=== PATIENT | male | born 1995 | race Caucasian/White ===

== ENCOUNTER 2021-02-22 17:07 | Inpatient (IN) | payer OTHER ==
[~2021-02-22] VITALS: Ht 190.5 cm; Wt 101.0 kg
[2021-02-22] MEDS ORDERED: acetaminophen 325mg tablet PO STA (17:22)
[2021-02-22] MEDS ORDERED: normal saline 1000ML IV soln IV ONE (17:25)
[2021-02-22] MEDS ORDERED: dexamethasone sod phosphate 10mg/ml inj IV STA (17:28)
[2021-02-22] MEDS ORDERED: ALBUTEROL INHALER 1 PUFF/90 MCG INHALER IH PRN (17:34)
[2021-02-22 18:09] LABS: BASOPHILS % (AUTO) 0.1 % (0-1); EOSINOPHILS % (AUTO) 0 % (0-6); HEMATOCRIT 39.2 % (42.0-52.0); HEMOGLOBIN 13.5 g/dl (14.0-17.9); LYMPHOCYTES # (AUTO) 0.4 X10'3 (1.1-4.8); MEAN CORPUSCULAR HEMOGLOBIN 28.7 PG (27.0-31.0); MEAN CORPUSCULAR HGB CONC 34.5 g/dL (33.0-36.5); MEAN CORPUSCULAR VOLUME 83.1 FL (78-98); MEAN PLATELET VOLUME 8.6 FL (7.4-10.4); MONOCYTES # (AUTO) 0.4 X10'3 (0-0.9); MONOCYTES % (AUTO) 6.4 % (2-12); NEUTROPHILS # (AUTO) 5.6 X10'3 (1.8-7.7); NEUTROPHILS % (AUTO) 87.5 % (42-75); PLATELET COUNT 239 X10'3 (140-440); RED BLOOD COUNT 4.72 X10'6 (4.70-6.10); RED CELL DISTRIBUTION WIDTH 13.8 % (11.5-14.5); WHITE BLOOD COUNT 6.4 X10'3 (4.5-11.0)
[2021-02-22] MEDS ORDERED: iohexol 350MG/ML 100ml bottle IV ONE (18:12)
[2021-02-22 18:21] LABS: D-DIMER 1.47 MG/L FEU (0-0.50)
[2021-02-22 18:24] LABS: ALANINE AMINOTRANSFERASE 171 U/L (12-78); ALBUMIN 2.9 G/DL (3.4-5.0); ALBUMIN/GLOBULIN RATIO 0.6 (1.1-1.5); ALKALINE PHOSPHATASE 41 IU/L (46-116); ANION GAP 12 (8-16); ASPARTATE AMINO TRANSFERASE 165 U/L (10-37); BILIRUBIN,TOTAL 0.5 MG/DL (0.1-1.0); BLOOD UREA NITROGEN 16 MG/DL (7-18); BUN/CREATININE RATIO 12.8 (5.4-32.0); C-REACTIVE PROTEIN 12.44 MG/DL (0.0-0.5); CALCIUM 7.8 MG/DL (8.5-10.1); CHLORIDE 98 MMOL/L (99-107); CREATININE 1.25 MG/DL (0.60-1.10); GLUCOSE 132 MG/DL (70-104); POTASSIUM 3.5 MMOL/L (3.5-5.1); SODIUM 135 MMOL/L (135-145); TOTAL CARBON DIOXIDE 24.7 MMOL/L (24-32); TOTAL PROTEIN 7.5 G/DL (6.4-8.2); eGFR 70 ML/MIN
[2021-02-22] MEDS ORDERED: REMDESIVIR INJ 200 MG in normal saline 100ml IV soln 60 ML IV ONE (18:50)
[2021-02-22 18:59] LABS: ABG BASE EXCESS 1.8 mmol/L (-2.0-2.0); ABG HCO3 24.7 mmol/L (22.0-26.0); ABG OXYGEN SATURATION 93.4 % (94-97); ABG PCO2 (T) 34.3 mmHg (35.0-48.0); ABG PO2 (T) 63.5 mmHg (75.0-100.0); ALLEN'S TEST POSITIVE; FCOHb 0.1 % (0.0-3.9); FLOW 15 L/min; FMetHb 0.4 % (0.0-1.5); FO2Hb 92.9 % (94-97); PATIENT TEMPERATURE 37.3
[2021-02-22] MEDS ORDERED: ALBU8HFA IH (19:12)
[2021-02-22] MEDS ORDERED: PRED20TA PO (19:12)
--- NOTE | 2021-02-22 19:13 | NUR ---
[facility] [place] [phone]
[2021-02-22] MEDS ORDERED: REMDESIVIR 100 MG in NS 100ml IVPB IV SCH (20:00)
[2021-02-22] MEDS ORDERED: acetaminophen 325mg tablet PO PRN (22:25)
[2021-02-22] MEDS ORDERED: ondansetron/PF 4mg/2ml inj IV PRN (22:25)
[2021-02-22] MEDS ORDERED: magnesium hydroxide 30ml (MOM) UD suspension PO PRN (22:25)
[2021-02-22] MEDS ORDERED: ALBUTEROL IH PRN (22:35)
[2021-02-23 01:44] LABS: BASOPHILS % (AUTO) 0.1 % (0-1); EOSINOPHILS % (AUTO) 0 % (0-6); HEMOGLOBIN 13.7 g/dl (14.0-17.9); LYMPHOCYTES # (AUTO) 0.7 X10'3 (1.1-4.8); LYMPHOCYTES % (AUTO) 10.7 % (21-51); MEAN CORPUSCULAR HEMOGLOBIN 28.7 PG (27.0-31.0); MEAN CORPUSCULAR HGB CONC 34.2 g/dL (33.0-36.5); MEAN CORPUSCULAR VOLUME 83.9 FL (78-98); MEAN PLATELET VOLUME 8.2 FL (7.4-10.4); MONOCYTES # (AUTO) 0.3 X10'3 (0-0.9); MONOCYTES % (AUTO) 4.6 % (2-12); NEUTROPHILS # (AUTO) 5.3 X10'3 (1.8-7.7); NEUTROPHILS % (AUTO) 84.6 % (42-75); PLATELET COUNT 249 X10'3 (140-440); RED BLOOD COUNT 4.76 X10'6 (4.70-6.10); RED CELL DISTRIBUTION WIDTH 13.6 % (11.5-14.5); WHITE BLOOD COUNT 6.2 X10'3 (4.5-11.0)
[2021-02-23] MEDS: mag hydrox/Alum hydrox/simeth 30ml oral suspension PO PRN (01:54)
[2021-02-23 02:01] LABS: ALANINE AMINOTRANSFERASE 164 U/L (12-78); ALBUMIN 2.7 G/DL (3.4-5.0); ALBUMIN/GLOBULIN RATIO 0.6 (1.1-1.5); ALKALINE PHOSPHATASE 44 IU/L (46-116); ANION GAP 10 (8-16); ASPARTATE AMINO TRANSFERASE 137 U/L (10-37); BILIRUBIN,TOTAL 0.5 MG/DL (0.1-1.0); BLOOD UREA NITROGEN 13 MG/DL (7-18); BUN/CREATININE RATIO 12.4 (5.4-32.0); CALCIUM 7.9 MG/DL (8.5-10.1); CHLORIDE 106 MMOL/L (99-107); CREATININE 1.05 MG/DL (0.60-1.10); GLUCOSE 161 MG/DL (70-104); SODIUM 141 MMOL/L (135-145); TOTAL CARBON DIOXIDE 24.8 MMOL/L (24-32); TOTAL PROTEIN 7.2 G/DL (6.4-8.2); eGFR 86 ML/MIN
[2021-02-23 02:30] LABS: CLARITY,URINE CLEAR (Clear); COLOR,URINE YELLOW (Yellow); GLUCOSE, URINE NEGATIVE (Neg); KETONES,URINE TRACE mg/dl (Neg); LEUKOCYTE ESTERASE ,URINE NEGATIVE (Neg); NITRITES, URINE NEGATIVE (Neg); OCCULT BLOOD,URINE NEGATIVE (Neg); PH,URINE 6.5 (4.8-8.0); PROTEIN,URINE NEGATIVE (Neg); UA COLLECTION TYPE URINAL; UROBILINOGEN,URINE 0.2 E.U/dL (0.2-1.0)
[2021-02-23 02:35] LABS: URINE AMPHETAMINE SCREEN NEGATIVE (Neg); URINE BARBITUATE SCREEN NEGATIVE (Neg); URINE BENZODIAZEPINES SCREEN NEGATIVE (Neg); URINE CANNABINOID SCREEN NEGATIVE (Neg); URINE COCAINE SCREEN NEGATIVE (Neg); URINE METHADONE SCREEN NEGATIVE (Neg); URINE OPIATE SCREEN NEGATIVE (Neg); URINE PHENCYCLIDINE SCREEN NEGATIVE (Neg)
--- NOTE | 2021-02-23 06:36 | NUR ---
paged rt for o2 adjustment pt spo2 86-91 on 30 l and pt is tachycardiac.
--- NOTE | 2021-02-23 07:00 | NUR ---
rt at bedside.
[2021-02-23] MEDS ORDERED: heparin, porcine 5000 units/ml vial SQ SCH (08:00)
[2021-02-23] MEDS: docusate sod 100mg capsule PO SCH ×2 (08:00→20:06)
[2021-02-23] MEDS: dexamethasone inj 6 MG in dextrose 5%-water 100 ML IV SCH ×2 (08:00→20:07)
[2021-02-23 10:00] VITALS: BP 107/66
[2021-02-23 14:00] VITALS: BP 112/66
[2021-02-23 18:00] VITALS: BP 116/69
--- NOTE | 2021-02-23 18:36 | NUR ---
Patient in room ORTHO 4024. I have received report from Alden LIRA and had the opportunity to ask questions and assume patient care.
[2021-02-23] MEDS ORDERED: enoxaparin 40mg/0.4ml syringe SUBCUT SCH (20:00)
[2021-02-23] MEDS: enoxaparin 40mg/0.4ml syringe SUBCUT SCH (20:06)
[2021-02-23] MEDS: REMDESIVIR 100 MG in NS 100ml IVPB IV SCH (20:07)
[2021-02-23 22:00] VITALS: BP 104/60
--- NOTE | 2021-02-23 23:45 | NUR ---
found patient sleeping on his back sats 81% and snoring. turned on his side - pt on 15NRB and 15HF NC. still sat 83%. pt looks sweaty and uncomfortable. didn't tolerate his side sleeping. notified Dr. Mina Win MD went in to see patient. ordered tower or bipap if patient needs.
[2021-02-24] MEDS ORDERED: LORazepam 0.5 MG tablet PO PRN (00:25)
--- NOTE | 2021-02-24 00:26 | NUR ---
pt having difficulty tolerating tower with high flow nasal at 50Liters and 100% FiO2. extensive education given for oxygen levels, types of oxygen, time for becoming comfortable with mask, risk for inubation etc. Dr. Enriquez ordered ativan prn. to call him back if dose ineffective. placed the warmer on patient for more comfort.
[2021-02-24] MEDS: mag hydrox/Alum hydrox/simeth 30ml oral suspension PO PRN (00:53)
[2021-02-24 02:00] VITALS: BP 105/62
[2021-02-24 06:00] VITALS: BP 99/57
--- NOTE | 2021-02-24 06:38 | NUR ---
Problems reprioritized. Patient report given, questions answered & plan of care reviewed with Alden LIRA.
[2021-02-24 07:17] LABS: BASOPHILS % (AUTO) 0.1 % (0-1); EOSINOPHILS % (AUTO) 0 % (0-6); HEMATOCRIT 36.8 % (42.0-52.0); HEMOGLOBIN 12.7 g/dl (14.0-17.9); LYMPHOCYTES # (AUTO) 0.7 X10'3 (1.1-4.8); MEAN CORPUSCULAR HEMOGLOBIN 28.8 PG (27.0-31.0); MEAN CORPUSCULAR HGB CONC 34.5 g/dL (33.0-36.5); MEAN CORPUSCULAR VOLUME 83.5 FL (78-98); MEAN PLATELET VOLUME 8.7 FL (7.4-10.4); MONOCYTES # (AUTO) 0.7 X10'3 (0-0.9); NEUTROPHILS # (AUTO) 5.9 X10'3 (1.8-7.7); NEUTROPHILS % (AUTO) 80.9 % (42-75); PLATELET COUNT 328 X10'3 (140-440); RED CELL DISTRIBUTION WIDTH 13.9 % (11.5-14.5); WHITE BLOOD COUNT 7.4 X10'3 (4.5-11.0)
[2021-02-24 07:33] LABS: D-DIMER 1.09 MG/L FEU (0-0.50)
[2021-02-24 07:40] LABS: ALANINE AMINOTRANSFERASE 145 U/L (12-78); ALBUMIN 2.3 G/DL (3.4-5.0); ALBUMIN/GLOBULIN RATIO 0.6 (1.1-1.5); ALKALINE PHOSPHATASE 39 IU/L (46-116); ANION GAP 9 (8-16); ASPARTATE AMINO TRANSFERASE 91 U/L (10-37); BILIRUBIN,TOTAL 0.4 MG/DL (0.1-1.0); BLOOD UREA NITROGEN 18 MG/DL (7-18); BUN/CREATININE RATIO 19.8 (5.4-32.0); C-REACTIVE PROTEIN 6.53 MG/DL (0.0-0.5); CALCIUM 7.7 MG/DL (8.5-10.1); CHLORIDE 110 MMOL/L (99-107); CREATININE 0.91 MG/DL (0.60-1.10); GLUCOSE 152 MG/DL (70-104); POTASSIUM 3.9 MMOL/L (3.5-5.1); SODIUM 144 MMOL/L (135-145); TOTAL CARBON DIOXIDE 25.3 MMOL/L (24-32); TOTAL PROTEIN 6.4 G/DL (6.4-8.2); eGFR > 90 ML/MIN
[2021-02-24] MEDS: pantoprazole 40mg Tablet.DR PO SCH (08:10)
[2021-02-24] MEDS: enoxaparin 40mg/0.4ml syringe SUBCUT SCH ×2 (08:10→20:39)
[2021-02-24] MEDS: docusate sod 100mg capsule PO SCH ×2 (08:10→20:38)
[2021-02-24] MEDS: dexamethasone inj 6 MG in dextrose 5%-water 100 ML IV SCH ×2 (08:11→20:38)
[2021-02-24 10:00] VITALS: BP 114/60
[2021-02-24] MEDS ORDERED: TOCILIZUMAB 80MG/4 ML INJ. 800 MG in normal saline 100ml IV soln 60 ML IV ONE (11:10)
[2021-02-24 14:00] VITALS: BP 114/82
[2021-02-24 17:43] LABS: ABG BASE EXCESS 0.9 mmol/L (-2.0-2.0); ABG HCO3 23.2 mmol/L (22.0-26.0); ABG OXYGEN SATURATION 92.5 % (94-97); ABG PCO2 (T) 30.8 mmHg (35.0-48.0); ABG PO2 (T) 61.9 mmHg (75.0-100.0); ALLEN'S TEST POSITIVE; FCOHb 0.3 % (0.0-3.9); FLOW 60 L/min; FMetHb 0.3 % (0.0-1.5); FO2Hb 91.9 % (94-97); TOTAL HEMOGLOBIN 14.2 G/dl (14.0-18.0)
[2021-02-24 18:00] VITALS: BP 115/73
--- NOTE | 2021-02-24 18:23 | NUR ---
PAGER ID: [phone] MESSAGE: [phone] Dudley Louis: RAUL douglas. [phone]
[2021-02-24] MEDS: REMDESIVIR 100 MG in NS 100ml IVPB IV SCH (20:39)
[2021-02-24 22:00] VITALS: BP 119/78
--- NOTE | 2021-02-25 01:00 | NUR ---
notified Dr. Enriquez that patient sats 85-90%. pt asymptomatic at this time. denies needs. tolerating flow w/o difficulty. aware and no change in order.s
[2021-02-25 02:00] VITALS: BP 109/69
--- NOTE | 2021-02-25 04:41 | NUR ---
PT DESATURATED TO 85% WHIEL LYING IN BED. POSITIONED ON LEFT SIDE AND ENCOURAGED PT TO TAKE DEEP BREATHE S PT COMPLIANT AND O2 SAT INCREASED TO 92-93
[2021-02-25 06:00] VITALS: BP 101/60
[2021-02-25] MEDS: dexamethasone inj 6 MG in dextrose 5%-water 100 ML IV SCH ×2 (07:58→19:28)
[2021-02-25] MEDS: enoxaparin 40mg/0.4ml syringe SUBCUT SCH ×2 (07:58→19:29)
[2021-02-25] MEDS: docusate sod 100mg capsule PO SCH ×2 (07:58→19:40)
[2021-02-25] MEDS: pantoprazole 40mg Tablet.DR PO SCH (07:58)
[2021-02-25 08:16] LABS: BASOPHILS % (AUTO) 0.2 % (0-1); EOSINOPHILS % (AUTO) 0 % (0-6); HEMATOCRIT 41.3 % (42.0-52.0); HEMOGLOBIN 13.6 g/dl (14.0-17.9); LYMPHOCYTES # (AUTO) 0.9 X10'3 (1.1-4.8); LYMPHOCYTES % (AUTO) 9.3 % (21-51); MEAN CORPUSCULAR HEMOGLOBIN 28.1 PG (27.0-31.0); MEAN CORPUSCULAR HGB CONC 33.1 g/dL (33.0-36.5); MEAN CORPUSCULAR VOLUME 84.9 FL (78-98); MEAN PLATELET VOLUME 8.8 FL (7.4-10.4); MONOCYTES % (AUTO) 11.2 % (2-12); NEUTROPHILS # (AUTO) 7.4 X10'3 (1.8-7.7); NEUTROPHILS % (AUTO) 79.3 % (42-75); PLATELET COUNT 413 X10'3 (140-440); RED BLOOD COUNT 4.87 X10'6 (4.70-6.10); RED CELL DISTRIBUTION WIDTH 14.1 % (11.5-14.5); WHITE BLOOD COUNT 9.3 X10'3 (4.5-11.0)
[2021-02-25 08:30] LABS: D-DIMER 0.71 MG/L FEU (0-0.50)
[2021-02-25 08:40] LABS: ALANINE AMINOTRANSFERASE 124 U/L (12-78); ALBUMIN 2.4 G/DL (3.4-5.0); ALBUMIN/GLOBULIN RATIO 0.6 (1.1-1.5); ALKALINE PHOSPHATASE 38 IU/L (46-116); ANION GAP 11 (8-16); ASPARTATE AMINO TRANSFERASE 54 U/L (10-37); BILIRUBIN,TOTAL 0.5 MG/DL (0.1-1.0); BLOOD UREA NITROGEN 21 MG/DL (7-18); BUN/CREATININE RATIO 22.6 (5.4-32.0); C-REACTIVE PROTEIN 3.53 MG/DL (0.0-0.5); CHLORIDE 110 MMOL/L (99-107); CREATININE 0.93 MG/DL (0.60-1.10); GLUCOSE 146 MG/DL (70-104); POTASSIUM 4.4 MMOL/L (3.5-5.1); SODIUM 147 MMOL/L (135-145); TOTAL CARBON DIOXIDE 25.6 MMOL/L (24-32); TOTAL PROTEIN 6.5 G/DL (6.4-8.2); eGFR > 90 ML/MIN
[2021-02-25 10:56] VITALS: BP 121/77
[2021-02-25 15:22] VITALS: BP 111/76
[2021-02-25 18:00] VITALS: BP 111/77
[2021-02-25] MEDS: REMDESIVIR 100 MG in NS 100ml IVPB IV SCH (19:28)
[2021-02-25 22:00] VITALS: BP 118/77
[2021-02-26 02:00] VITALS: BP 118/67
--- NOTE | 2021-02-26 05:51 | NUR ---
left text msg for DR Payne to inform pt on hi [facility] oxygen tower. hr dropping 47-48 while sleeping . o2 sat 89_93% . charge nurse jerod also informed
[2021-02-26 06:00] VITALS: BP 110/77
[2021-02-26 06:09] LABS: BASOPHILS % (AUTO) 0.1 % (0-1); EOSINOPHILS # (AUTO) 0.1 X10'3 (0-0.9); EOSINOPHILS % (AUTO) 0.6 % (0-6); HEMATOCRIT 41.2 % (42.0-52.0); LYMPHOCYTES # (AUTO) 1.1 X10'3 (1.1-4.8); LYMPHOCYTES % (AUTO) 9.2 % (21-51); MEAN CORPUSCULAR HEMOGLOBIN 28.9 PG (27.0-31.0); MEAN CORPUSCULAR HGB CONC 34.1 g/dL (33.0-36.5); MEAN PLATELET VOLUME 8.8 FL (7.4-10.4); MONOCYTES % (AUTO) 8.7 % (2-12); NEUTROPHILS # (AUTO) 9.6 X10'3 (1.8-7.7); NEUTROPHILS % (AUTO) 81.4 % (42-75); PLATELET COUNT 441 X10'3 (140-440); RED BLOOD COUNT 4.85 X10'6 (4.70-6.10); RED CELL DISTRIBUTION WIDTH 14.1 % (11.5-14.5); WHITE BLOOD COUNT 11.8 X10'3 (4.5-11.0)
[2021-02-26 06:16] LABS: D-DIMER 0.71 MG/L FEU (0-0.50)
[2021-02-26 06:24] LABS: ALANINE AMINOTRANSFERASE 106 U/L (12-78); ALBUMIN 2.5 G/DL (3.4-5.0); ALBUMIN/GLOBULIN RATIO 0.6 (1.1-1.5); ALKALINE PHOSPHATASE 42 IU/L (46-116); ANION GAP 5 (8-16); ASPARTATE AMINO TRANSFERASE 52 U/L (10-37); BILIRUBIN,TOTAL 0.6 MG/DL (0.1-1.0); BLOOD UREA NITROGEN 20 MG/DL (7-18); C-REACTIVE PROTEIN 2.38 MG/DL (0.0-0.5); CHLORIDE 110 MMOL/L (99-107); GLUCOSE 122 MG/DL (70-104); POTASSIUM 4.8 MMOL/L (3.5-5.1); SODIUM 143 MMOL/L (135-145); TOTAL CARBON DIOXIDE 27.9 MMOL/L (24-32); TOTAL PROTEIN 6.6 G/DL (6.4-8.2); eGFR > 90 ML/MIN
--- NOTE | 2021-02-26 06:49 | NUR ---
Patient in room ORTHO 4024. I have received report from BROCK Stephens and had the opportunity to ask questions and assume patient care.
--- NOTE | 2021-02-26 09:47 | NUR ---
Initial: Pt admitted w/ difficulty of breathing secondary to Covid infection per EMR. Pt currently on 60L oxygen via HFNC. Pt w/ poor PO intake on Regular diet likely secondary to respiratory status, 0% intake 02/25 and ~25% intake previously not meeting needs. Pt may benefit from Ensure Enlive TID at this time, though pt may require supplemental TF if PO does not improve given high energy and protein needs. LBM 02/22 receiving routine colace. Will continue to monitor. Recs: 1. Continue Regular diet as tolerated; encourage PO 2. Ensure Enlive TID; pending MD verification 3. IF PO does not improve; Continuous TF using Pivot 1.5 at 75ml/hr 4. Bowel care per rx 5. Weekly wts Addendum: 02/26/21 at [address] Amended: Links added.
[2021-02-26] MEDS: dexamethasone inj 6 MG in dextrose 5%-water 100 ML IV SCH ×2 (10:12→20:48)
[2021-02-26] MEDS: enoxaparin 40mg/0.4ml syringe SUBCUT SCH ×2 (10:12→20:48)
[2021-02-26] MEDS: docusate sod 100mg capsule PO SCH ×2 (10:12→20:48)
[2021-02-26] MEDS: pantoprazole 40mg Tablet.DR PO SCH (10:12)
[2021-02-26] MEDS ORDERED: benzonatate 100mg capsule PO PRN (12:25)
[2021-02-26] MEDS: lactose-reduced food (Ensure Enlive) - 237ml bottle PO SCH ×2 (13:00→18:07)
[2021-02-26 18:00] VITALS: BP 107/65
--- NOTE | 2021-02-26 18:40 | NUR ---
Problems reprioritized. Patient report given, questions answered & plan of care reviewed with PANKAJ Gracia.
[2021-02-26] MEDS: REMDESIVIR 100 MG in NS 100ml IVPB IV SCH (20:58)
[2021-02-26 22:00] VITALS: BP 105/63
[2021-02-27 02:00] VITALS: BP 104/58
[2021-02-27 06:00] VITALS: BP 110/65
[2021-02-27 07:10] LABS: BASOPHILS % (AUTO) 0.1 % (0-1); EOSINOPHILS # (AUTO) 0.2 X10'3 (0-0.9); EOSINOPHILS % (AUTO) 1.3 % (0-6); HEMATOCRIT 43.3 % (42.0-52.0); HEMOGLOBIN 14.6 g/dl (14.0-17.9); LYMPHOCYTES # (AUTO) 1.4 X10'3 (1.1-4.8); MEAN CORPUSCULAR HEMOGLOBIN 28.5 PG (27.0-31.0); MEAN CORPUSCULAR HGB CONC 33.7 g/dL (33.0-36.5); MEAN CORPUSCULAR VOLUME 84.4 FL (78-98); MEAN PLATELET VOLUME 8.4 FL (7.4-10.4); MONOCYTES # (AUTO) 0.9 X10'3 (0-0.9); MONOCYTES % (AUTO) 7.3 % (2-12); NEUTROPHILS % (AUTO) 80.3 % (42-75); PLATELET COUNT 485 X10'3 (140-440); RED BLOOD COUNT 5.13 X10'6 (4.70-6.10); RED CELL DISTRIBUTION WIDTH 14.2 % (11.5-14.5); WHITE BLOOD COUNT 12.4 X10'3 (4.5-11.0)
[2021-02-27 07:30] LABS: D-DIMER 0.93 MG/L FEU (0-0.50)
[2021-02-27 07:41] LABS: ALANINE AMINOTRANSFERASE 116 U/L (12-78); ALBUMIN 2.6 G/DL (3.4-5.0); ALBUMIN/GLOBULIN RATIO 0.6 (1.1-1.5); ALKALINE PHOSPHATASE 45 IU/L (46-116); ANION GAP 9 (8-16); ASPARTATE AMINO TRANSFERASE 59 U/L (10-37); BILIRUBIN,TOTAL 0.7 MG/DL (0.1-1.0); BLOOD UREA NITROGEN 21 MG/DL (7-18); BUN/CREATININE RATIO 21.2 (5.4-32.0); C-REACTIVE PROTEIN 1.53 MG/DL (0.0-0.5); CHLORIDE 106 MMOL/L (99-107); CREATININE 0.99 MG/DL (0.60-1.10); GLUCOSE 108 MG/DL (70-104); POTASSIUM 4.7 MMOL/L (3.5-5.1); SODIUM 142 MMOL/L (135-145); TOTAL CARBON DIOXIDE 27.1 MMOL/L (24-32); TOTAL PROTEIN 6.7 G/DL (6.4-8.2); eGFR > 90 ML/MIN
[2021-02-27] MEDS: enoxaparin 40mg/0.4ml syringe SUBCUT SCH ×2 (08:07→20:31)
[2021-02-27] MEDS: dexamethasone inj 6 MG in dextrose 5%-water 100 ML IV SCH ×2 (08:07→20:31)
[2021-02-27] MEDS: pantoprazole 40mg Tablet.DR PO SCH (08:07)
[2021-02-27] MEDS: docusate sod 100mg capsule PO SCH ×3 (08:07→20:32)
[2021-02-27] MEDS: lactose-reduced food (Ensure Enlive) - 237ml bottle PO SCH ×4 (08:07→18:00)
[2021-02-27 10:00] VITALS: BP 96/65
[2021-02-27 14:00] VITALS: BP 106/68
[2021-02-27 18:00] VITALS: BP 104/65
--- NOTE | 2021-02-27 18:20 | NUR ---
Patient in room ORTHO 4024. I have received report from ROMI LIRA and had the opportunity to ask questions and assume patient care. Addendum: 02/28/21 at 0539 by Yasmin Hernandez RN Amended: Links added.
--- NOTE | 2021-02-27 22:30 | NUR ---
right hand iv painful infiltrated and dc'd cath intact. new iv started 3rd stick left ac pt tolerated well. completed infusion.
--- NOTE | 2021-02-27 22:55 | NUR ---
Rt decreased fio2 from 100% down to 95%. Addendum: 02/28/21 at 0044 by Yasmin Hernandez RN Amended: Links added.
--- NOTE | 2021-02-28 00:50 | NUR ---
resting without s&s of distress at this time.
[2021-02-28 02:00] VITALS: BP 98/57
--- NOTE | 2021-02-28 04:16 | NUR ---
pt ressting eyes closed appears comfortable sats at 97% on 60 high flow at 95%. pt tolerating well.
[2021-02-28 06:00] VITALS: BP 93/60
--- NOTE | 2021-02-28 06:43 | NUR ---
Problems reprioritized. Patient report given, questions answered & plan of care reviewed with ROMI LIRA. Addendum: 02/28/21 at 0644 by Yasmin Hernandez RN Amended: Links added.
[2021-02-28 07:13] LABS: D-DIMER 0.84 MG/L FEU (0-0.50)
[2021-02-28] MEDS: dexamethasone inj 6 MG in dextrose 5%-water 100 ML IV SCH ×2 (07:30→20:36)
[2021-02-28] MEDS: docusate sod 100mg capsule PO SCH ×2 (07:31→20:36)
[2021-02-28] MEDS: enoxaparin 40mg/0.4ml syringe SUBCUT SCH ×2 (07:31→20:37)
[2021-02-28] MEDS: pantoprazole 40mg Tablet.DR PO SCH (07:31)
[2021-02-28] MEDS: lactose-reduced food (Ensure Enlive) - 237ml bottle PO SCH ×3 (08:00→18:00)
[2021-02-28 10:00] VITALS: BP 98/64
[2021-02-28 14:00] VITALS: BP 92/69
[2021-02-28 18:00] VITALS: BP 92/69
[2021-02-28 22:14] VITALS: BP 93/44
[2021-03-01 02:00] VITALS: BP 96/57
[2021-03-01 06:00] VITALS: BP 94/51
[2021-03-01 06:58] LABS: D-DIMER 0.67 MG/L FEU (0-0.50)
[2021-03-01] MEDS: lactose-reduced food (Ensure Enlive) - 237ml bottle PO SCH ×3 (08:00→18:00)
[2021-03-01] MEDS: pantoprazole 40mg Tablet.DR PO SCH (08:16)
[2021-03-01] MEDS: dexamethasone inj 6 MG in dextrose 5%-water 100 ML IV SCH ×2 (08:16→20:04)
[2021-03-01] MEDS: docusate sod 100mg capsule PO SCH ×2 (08:17→20:04)
[2021-03-01] MEDS: enoxaparin 40mg/0.4ml syringe SUBCUT SCH ×2 (08:17→20:05)
[2021-03-01 10:28] VITALS: BP 94/57
--- NOTE | 2021-03-01 10:53 | NUR ---
Reassessment: Pt PO remains poor 0-25% avg regular diet 6 days w/ overall 50-75% avg ONS consuming two of three Ensure Enlive each day not meeting needs. Dietary not aware of ONS; notified to send TIDWM to ensure pt routinely receiving. Current PO trends likely impacted by respiratory status on 50L HFNC per EMR. Even if 100% ONS intake would only meet 42% kcals and 46% protein needs w/ PO trends past 6 days given pt large stature and DX. RD paged MD regarding supplemental NGTF if agreeable given poor nutrition status. TF recs below in case to start to meet minimum protein needs based on current kcal intake. Given PO less than 50% needs past 6 days in addition to mild weakness pt meeds minimum non-severe malnutrition criteria; MD notified. No documented BM this admit 7 days receiving routine colace; IF true constipation would benefit from additional bowel care per MD discretion. Will continue to monitor for additional nutrition intervention needs. Recs: 1. Continue Regular diet as tolerated; encourage PO 2. Ensure Enlive TID; encourage PO 3. Consider supplemental NG feeds if MD agreeable given poor PO meals 6 days w/ ONS PO meeting less than 50% protein/kcal needs. IF continuous NGTF: Pivot 1.5 at 65ml/hr goal would provide 1560ml volume/day, 2340kcals, 1186ml water, and 146g protein. 4. IF TF; additional water flush ml Q4H 5. IF TF; PALB Q M/Th; daily wts 6. routine bowel care; no documented BM this admit 7. Weekly wts Addendum: 03/01/21 at [address] Amended: Links added.
[2021-03-01 14:30] VITALS: BP 98/61
[2021-03-01 18:00] VITALS: BP 100/64
--- NOTE | 2021-03-01 18:15 | NUR ---
Offered patient Zofran for nausea but patient denies need for Zofran
--- NOTE | 2021-03-01 18:43 | NUR ---
Problems reprioritized. Patient report given, questions answered & plan of care reviewed with Moises LIRA.
[2021-03-01 22:00] VITALS: BP 108/64
[2021-03-02 02:00] VITALS: BP 108/62
[2021-03-02 06:00] VITALS: BP 111/70
--- NOTE | 2021-03-02 06:32 | NUR ---
received report from stephy terrell
[2021-03-02] MEDS: lactose-reduced food (Ensure Enlive) - 237ml bottle PO SCH ×3 (08:21→18:00)
[2021-03-02] MEDS: pantoprazole 40mg Tablet.DR PO SCH (08:24)
[2021-03-02] MEDS: docusate sod 100mg capsule PO SCH ×2 (08:24→19:39)
[2021-03-02] MEDS: dexamethasone inj 6 MG in dextrose 5%-water 100 ML IV SCH ×2 (08:25→19:38)
[2021-03-02] MEDS: enoxaparin 40mg/0.4ml syringe SUBCUT SCH ×2 (08:25→19:39)
[2021-03-02 10:00] VITALS: BP 99/62
[2021-03-02 14:00] VITALS: BP 105/66
--- NOTE | 2021-03-02 17:39 | NUR ---
md aware of blood in pt stool, no new orders at this time
[2021-03-02 18:00] VITALS: BP 114/70
--- NOTE | 2021-03-02 18:17 | NUR ---
gave report to stephy jaime
--- NOTE | 2021-03-02 18:20 | NUR ---
Patient in room ORTHO 4024. I have received report from PANKAJ Gabriel and had the opportunity to ask questions and assume patient care.
[2021-03-02 22:00] VITALS: BP 103/59
[2021-03-03 02:00] VITALS: BP 100/56
[2021-03-03 06:00] VITALS: BP 95/69
--- NOTE | 2021-03-03 06:29 | NUR ---
Problems reprioritized. Patient report given, questions answered & plan of care reviewed with PANKAJ Love.
--- NOTE | 2021-03-03 06:54 | NUR ---
Patient in room ORTHO 4024. I have received report from PANKAJ COBB, and had the opportunity to ask questions and assume patient care.
[2021-03-03] MEDS: dexamethasone inj 6 MG in dextrose 5%-water 100 ML IV SCH ×2 (07:32→20:21)
[2021-03-03] MEDS: lactose-reduced food (Ensure Enlive) - 237ml bottle PO SCH ×2 (07:33→18:00)
[2021-03-03] MEDS: pantoprazole 40mg Tablet.DR PO SCH (07:33)
[2021-03-03] MEDS: enoxaparin 40mg/0.4ml syringe SUBCUT SCH ×2 (07:33→20:00)
[2021-03-03] MEDS: docusate sod 100mg capsule PO SCH ×2 (07:33→20:00)
[2021-03-03 10:00] VITALS: BP 105/61
[2021-03-03 14:00] VITALS: BP 106/61
[2021-03-03 18:00] VITALS: BP 103/54
--- NOTE | 2021-03-03 18:46 | NUR ---
Problems reprioritized. Patient report given, questions answered & plan of care reviewed with PANKAJ NIELSON.
[2021-03-03 22:00] VITALS: BP 96/56
--- NOTE | 2021-03-03 22:13 | NUR ---
PT REFUSED HIS HS DOSE OF HEPARIN SQ. HE STATES THAT HE THINKS THAT HE HAD BLOOD IN HIS STOOL THIS AFTERNOON. DENIES ANYMORE BLOODY STOOL SINCE THEN. DISCUSSED RATIONALE OF HEPARIN AND POSSIBLE SIDE EFFECTS. HE STATES THAT HE FEELS LIKE HE WILL HAVE TO MAKE ANOTHER BM TONIGHT. INSTRUCTED PT TO SAVE NEXT BM FOR OBSERVATION. VSS. WILL CONT TO MONITOR.
[2021-03-04 02:00] VITALS: BP 100/55
[2021-03-04 06:00] VITALS: BP 104/63
--- NOTE | 2021-03-04 06:38 | NUR ---
Patient in room ORTHO 4024. I have received report from PANKAJ De Leon and had the opportunity to ask questions and assume patient care.
[2021-03-04] MEDS: dexamethasone inj 6 MG in dextrose 5%-water 100 ML IV SCH ×2 (07:57→19:55)
[2021-03-04] MEDS: pantoprazole 40mg Tablet.DR PO SCH (07:57)
[2021-03-04] MEDS: lactose-reduced food (Ensure Enlive) - 237ml bottle PO SCH ×3 (07:57→18:16)
[2021-03-04] MEDS: docusate sod 100mg capsule PO SCH ×2 (08:00→19:55)
[2021-03-04] MEDS: enoxaparin 40mg/0.4ml syringe SUBCUT SCH (08:00)
[2021-03-04 08:34] LABS: BASOPHILS % (AUTO) 0.1 % (0-1); EOSINOPHILS # (AUTO) 0.1 X10'3 (0-0.9); HEMATOCRIT 43.8 % (42.0-52.0); HEMOGLOBIN 14.5 g/dl (14.0-17.9); LYMPHOCYTES # (AUTO) 1.7 X10'3 (1.1-4.8); LYMPHOCYTES % (AUTO) 15.4 % (21-51); MEAN CORPUSCULAR HEMOGLOBIN 28.4 PG (27.0-31.0); MEAN CORPUSCULAR HGB CONC 33.1 g/dL (33.0-36.5); MEAN PLATELET VOLUME 9.1 FL (7.4-10.4); MONOCYTES % (AUTO) 9.5 % (2-12); NEUTROPHILS # (AUTO) 8.2 X10'3 (1.8-7.7); PLATELET COUNT 408 X10'3 (140-440); WHITE BLOOD COUNT 11.1 X10'3 (4.5-11.0)
[2021-03-04 08:50] LABS: D-DIMER 0.74 MG/L FEU (0-0.50)
[2021-03-04 09:04] LABS: ALANINE AMINOTRANSFERASE 221 U/L (12-78); ALBUMIN 3.1 G/DL (3.4-5.0); ALBUMIN/GLOBULIN RATIO 0.9 (1.1-1.5); ALKALINE PHOSPHATASE 47 IU/L (46-116); ANION GAP 6 (8-16); ASPARTATE AMINO TRANSFERASE 57 U/L (10-37); BILIRUBIN,TOTAL 0.5 MG/DL (0.1-1.0); BLOOD UREA NITROGEN 19 MG/DL (7-18); BUN/CREATININE RATIO 21.8 (5.4-32.0); CALCIUM 7.6 MG/DL (8.5-10.1); CHLORIDE 106 MMOL/L (99-107); CREATININE 0.87 MG/DL (0.60-1.10); GLUCOSE 97 MG/DL (70-104); LACTATE DEHYDROGENASE 349 U/L (85-227); MAGNESIUM 2.7 MG/DL (1.5-2.4); POTASSIUM 4.1 MMOL/L (3.5-5.1); SODIUM 142 MMOL/L (135-145); TOTAL CARBON DIOXIDE 30.4 MMOL/L (24-32); TOTAL PROTEIN 6.6 G/DL (6.4-8.2); eGFR > 90 ML/MIN
[2021-03-04 10:00] VITALS: BP 105/69
--- NOTE | 2021-03-04 12:32 | NUR ---
Reassessment: Pt with fluctuating PO intake, overall not eating much of meals though with average 71% PO intake of three out of four most recent meals. Hopeful that appetite and PO intake continues to improve. PO intake of ONS fluctuates with 100% PO intake and refusals. IF PO intake of meals continues to improve ONS may no longer be indicated. Recommend continuing with ONS at this time pending further trends in PO intake given recent improvement. IF PO intake of meals and/or ONS declines, pt would benefit from EN for supplemental or full nutrition. [facility] 03/04. Will continue to follow closely. Recommendations: 1. Continue regular diet 2. Ensure Enlive TIDWM 3. Encourage PO intake of meals and ONS 4. Consider supplemental NG feeds if MD agreeable given poor PO meals 6 days with ONS PO meeting less than 50% protein/kcal needs. IF continuous NGTF: Pivot 1.5 at 65 ml/hr goal to provide 1560 ml volume/day, 2340 kcal, 1186 ml water, and 146 g protein. 5. IF TF; monitor serum Na and PO intake for water flush recommendations 6. IF TF; PALB q /; daily scaled wts 7. Routine bowel care 8. Weekly scaled weights Addendum: 03/04/21 at [address] Amended: Links added.
[2021-03-04 14:00] VITALS: BP 97/61
[2021-03-04] MEDS ORDERED: enoxaparin 40mg/0.4ml syringe SUBCUT ONE (15:55)
[2021-03-04 18:00] VITALS: BP 116/70
--- NOTE | 2021-03-04 18:00 | NUR ---
Patient in room ORTHO 4024. I have received report from DELIA LIRA and had the opportunity to ask questions and assume patient care.
--- NOTE | 2021-03-04 18:31 | NUR ---
Problems reprioritized. Patient report given, questions answered & plan of care reviewed with PANKAJ Gracia.
[2021-03-04 22:00] VITALS: BP 102/65
--- NOTE | 2021-03-05 06:30 | NUR ---
Patient in room ORTHO 4024. I have received report from Samia LIRA and had the opportunity to ask questions and assume patient care.
--- NOTE | 2021-03-05 06:34 | NUR ---
Problems reprioritized. Patient report given, questions answered & plan of care reviewed with PAULA LIRA.
[2021-03-05 07:00] VITALS: BP 97/71
[2021-03-05] MEDS: docusate sod 100mg capsule PO SCH (07:17)
[2021-03-05] MEDS: pantoprazole 40mg Tablet.DR PO SCH (07:17)
[2021-03-05 07:30] LABS: D-DIMER 0.68 MG/L FEU (0-0.50)
[2021-03-05 07:35] LABS: ALANINE AMINOTRANSFERASE 199 U/L (12-78); ALKALINE PHOSPHATASE 49 IU/L (46-116); ANION GAP 9 (8-16); ASPARTATE AMINO TRANSFERASE 51 U/L (10-37); BASOPHILS % (AUTO) 0.1 % (0-1); BILIRUBIN,TOTAL 0.4 MG/DL (0.1-1.0); BLOOD UREA NITROGEN 16 MG/DL (7-18); BUN/CREATININE RATIO 21.1 (5.4-32.0); CALCIUM 8.2 MG/DL (8.5-10.1); CHLORIDE 106 MMOL/L (99-107); CREATININE 0.76 MG/DL (0.60-1.10); EOSINOPHILS # (AUTO) 0.1 X10'3 (0-0.9); EOSINOPHILS % (AUTO) 0.4 % (0-6); GLUCOSE 91 MG/DL (70-104); HEMATOCRIT 40.9 % (42.0-52.0); HEMOGLOBIN 13.5 g/dl (14.0-17.9); LACTATE DEHYDROGENASE 366 U/L (85-227); LYMPHOCYTES # (AUTO) 2.2 X10'3 (1.1-4.8); LYMPHOCYTES % (AUTO) 18.4 % (21-51); MAGNESIUM 2.3 MG/DL (1.5-2.4); MEAN CORPUSCULAR HEMOGLOBIN 28.2 PG (27.0-31.0); MEAN CORPUSCULAR HGB CONC 32.9 g/dL (33.0-36.5); MEAN CORPUSCULAR VOLUME 85.6 FL (78-98); MEAN PLATELET VOLUME 9.4 FL (7.4-10.4); MONOCYTES % (AUTO) 8.2 % (2-12); NEUTROPHILS # (AUTO) 8.7 X10'3 (1.8-7.7); NEUTROPHILS % (AUTO) 72.9 % (42-75); PHOSPHORUS 3.6 MG/DL (2.3-4.5); PLATELET COUNT 350 X10'3 (140-440); POTASSIUM 3.8 MMOL/L (3.5-5.1); RED BLOOD COUNT 4.77 X10'6 (4.70-6.10); RED CELL DISTRIBUTION WIDTH 14.4 % (11.5-14.5); SODIUM 141 MMOL/L (135-145); TOTAL CARBON DIOXIDE 25.7 MMOL/L (24-32); TOTAL PROTEIN 6.1 G/DL (6.4-8.2); WHITE BLOOD COUNT 11.9 X10'3 (4.5-11.0); eGFR > 90 ML/MIN
[2021-03-05 07:36] LABS: C-REACTIVE PROTEIN < 0.05 MG/DL (0.0-0.5)
[2021-03-05] MEDS: lactose-reduced food (Ensure Enlive) - 237ml bottle PO SCH ×2 (08:00→12:45)
[2021-03-05] MEDS ORDERED: dexamethasone inj 5 MG in dextrose 5%-water 100 ML IV SCH (08:00)
[2021-03-05] MEDS ORDERED: enoxaparin 40mg/0.4ml syringe SUBCUT SCH (08:00)
[2021-03-05 09:17] LABS: TOTAL CELLS COUNTED 100
[2021-03-05 09:19] LABS: PLATELET ESTIMATE NORMAL; POIKILOCYTOSIS FEW
[2021-03-05 10:00] VITALS: BP 97/71
[2021-03-05] MEDS ORDERED: ASPI-611 PO (11:35)
[2021-03-05] MEDS ORDERED: PRED10TA PO (11:35)
[2021-03-05] MEDS ORDERED: ALBU8.5H17 INH (11:35)
[2021-03-05] MEDS ORDERED: PANT40TA54 PO (11:35)
--- NOTE | 2021-03-05 11:45 | NUR ---
O2 Sat at rest on room air: 94% If O2 Sat did not drop below 89% on room air,ambulate patient on room air. O2 Sat while ambulating on room air: 88% Recovery O2 Sat while ambulating on 2 LPM: 95% No further documentation is necessary. If patient does not drop below 89% while ambulating, he/she does not qualify for home O2.
--- NOTE | 2021-03-05 11:50 | NUR ---
Sent the following page to case management: [place] 02 qualification note has been put in for Dudley Louis room 3026W. Bijal ext [phone]
--- NOTE | 2021-03-05 13:32 | NUR ---
[id number] Thanks Bijal ext [phone]
[2021-03-05 15:00] VITALS: BP 101/61
--- NOTE | 2021-03-05 15:51 | NUR ---
Patient stable for discharge per Dr. Lorenz. PIV DC'd with cannula intact, tele DC'd. Patient was educated on the use of home 02 and provided with oxygen to take home. Patient verbalized understanding of discharge instructions including the need to isolate until 03/14/21. He also verbalized understanding of the new medication regimen and importance of followup care. Patient and his belongings were escorted to the lobby for transport home by family.
== END 2021-03-05 15:43 | disposition home or self-care (01) | DRG 177 ==
LOC: ER 17:07 → ED HOLD 22:24 → ORTHO 4S 02-23 08:05
PROVIDERS: ADMIT Internal Medicine; ATTEND Internal Medicine
PROC: B32T1ZZ Computerized Tomography (CT Scan) of Left Pulmonary Artery using Low Osmolar Contrast (ICD-10-PCS; principal; 2021-02-22)
PROC: B3201ZZ Computerized Tomography (CT Scan) of Thoracic Aorta using Low Osmolar Contrast (ICD-10-PCS; 2021-02-22)
PROC: B32S1ZZ Computerized Tomography (CT Scan) of Right Pulmonary Artery using Low Osmolar Contrast (ICD-10-PCS; 2021-02-22)
PROC: XW033E5 Introduction of Remdesivir Anti-infective into Peripheral Vein, Percutaneous Approach, New Technology Group 5 (ICD-10-PCS; 2021-02-23)
PROC: 5A0955A Assistance with Respiratory Ventilation, Greater than 96 Consecutive Hours, High Flow/Velocity Cannula (ICD-10-PCS; 2021-02-23)
PROC: XW033H5 Introduction of Tocilizumab into Peripheral Vein, Percutaneous Approach, New Technology Group 5 (ICD-10-PCS; 2021-02-24)
DX: U07.1 COVID-19 (principal); J12.82 Pneumonia due to coronavirus disease 2019; J96.01 Acute respiratory failure with hypoxia; J45.909 Unspecified asthma, uncomplicated; Z88.1 Allergy status to other antibiotic agents
CPT/HCPCS: 36415; 36600; 71045; 71275; 80053; 80305; 81003; 82803; 83605; 83615; 83735; 84100; 84145; 85007; 85018; 85025; 85379; 86140; 87040; 87081; 87635; 93005; 94760; 97161; 97530; 99285; C9803; G0378; J1100; J1644; J1650; J3262; J7030; J7060; Q9967